=== PATIENT | female | born 1930 | race Caucasian/White ===

== ENCOUNTER 2018-09-30 00:02 | Emergency (ER) | payer MEDICARE, BC ==
--- NOTE | 2018-09-30 00:10 | ED ---
General Adult HPI - General Stated complaint: Dehydration Time Seen by Provider: 09/30/18 00:08 - History of Present Illness Initial comments: Cindy is a 88-year-old female with extensive past medical history most significant for adrenal insufficiency for which she is on steroids 3 times daily. Patient presented to an outside emergency department today for evaluation of generalized weakness. She is found to have mild hyponatremia, mild hyperkalemia, mild increase in her kidney function and normal TSH. There is concerned that she had acute adrenal insufficiency and she has recently been treated for urinary tract infection. She was given a stress dose of 10 mg of IV Decadron and decision was made to transfer her here. Patient reports that she's just been very weak, too weak to get out of bed. She reports she's been compliant with her home medications. She was recently surety for urinary tract infection but is no longer having symptoms and her urinalysis at outside facility revealed no UTI. Review of Systems ROS Statement: Those systems with pertinent positive or pertinent negative responses have been documented in the HPI. ROS Other: All systems not noted in ROS Statement are negative. General Exam - General Exam Comments Initial Comments: Physical Exam GENERAL: Chronically ill-appearing, edematous HENT: Normocephalic, Atraumatic. EYES: PERRL, EOMI PULMONARY: Unlabored respirations. No audible rales rhonchi or wheezing was noted. CARDIOVASCULAR: There is a regular rate and rhythm without any murmurs gallops or rubs. ABDOMEN: Soft and nontender with normal bowel sounds. SKIN: Skin is thin and pale : Deferred NEUROLOGIC: Patient is alert and oriented x3. Moving all extremities spontaneously MUSCULOSKELETAL: Generalized muscle atrophy 2+ pitting edema lower extremities PSYCHIATRIC: Flat affect Limitations: no limitations Course Vital Signs 09/30/18 09/30/18 00:03 02:29 Temperature 97.4 F L Pulse Rate 71 70 Respiratory 18 15 Rate Blood Pressure 183/86 197/94 O2 Sat by Pulse 100 97 Oximetry Medical Decision Making - Medical Decision Making Patient care was discussed with the [facility], I was made aware of the patient's history, physical exam, labs and vital signs The patient was seen and evaluated upon arrival Repeat labs are ordered Patient care was discussed with the admitting physician who will not accept the admission at this time due to not having endocrinology available. Attempts were made to contact Dr. Nicole endocrinology however her office does not have an answering service and we could not confirm that she would be available to round on the patient therefore admitting physician did not accept the patient. Decision was made to transfer the patient to [facility]. Patient care was discussed with the ER physician [facility] who did confirm they have endocrinology available to see the patient and accepted the admission. Patient' s family agreeable to plan for transfer. - Lab Data Result diagrams: 09/30/18 00:05 09/30/18 00:05 Lab Results 09/30/18 09/30/18 Range/Units 00:05 00:05 WBC 3.4 L (3.8-10.6) k/uL RBC 3.12 L (3.80-5.40) m/uL Hgb 10.1 L (11.4-16.0) gm/dL Hct 31.6 L (34.0-46.0) % MCV 101.2 H (80.0-100.0) fL MCH 32.4 (25.0-35.0) pg MCHC 32.0 (31.0-37.0) g/dL RDW 15.7 H (11.5-15.5) % Plt Count (150-450) k/uL Neutrophils % 78 % Lymphocytes % 17 % Monocytes % 4 % Eosinophils % 0 % Basophils % 0 % Neutrophils # 2.6 (1.3-7.7) k/uL Lymphocytes # 0.6 L (1.0-4.8) k/uL Monocytes # 0.1 (0-1.0) k/uL Eosinophils # 0.0 (0-0.7) k/uL Basophils # 0.0 (0-0.2) k/uL Macrocytosis Slight Sodium 130 L (137-145) mmol/L Potassium 5.6 H (3.5-5.1) mmol/L Chloride 100 (98-107) mmol/L Carbon Dioxide 22 (22-30) mmol/L Anion Gap 8 mmol/L BUN 39 H (7-17) mg/dL Creatinine 1.15 H (0.52-1.04) mg/dL Est GFR (CKD-EPI)AfAm 50 (>60 ml/min/1.73 sqM) Est GFR (CKD-EPI)NonAf 43 (>60 ml/min/1.73 sqM) Glucose 132 H (74-99) mg/dL Calcium 8.9 (8.4-10.2) mg/dL Total Bilirubin 0.4 (0.2-1.3) mg/dL AST 25 (14-36) U/L ALT 31 (9-52) U/L Alkaline Phosphatase 90 (38-126) U/L Total Protein 6.4 (6.3-8.2) g/dL Albumin 3.6 (3.5-5.0) g/dL TSH 0.504 (0.465-4.680) mIU/L Cortisol 1 ug/dL Disposition Clinical Impression: Adrenal insufficiency, Fatigue Disposition: OTHER INSTITUTION NOT DEFINED Condition: Stable Referrals: Jose Miller DO [Primary Care Provider] - 1-2 days - Out of Hospital Transfer - Req. Specs Out of Hospital Transfer - Requested Specifics: Other Emergency Center ([facility])
[2018-09-30 00:20] VITALS: TEMP 97.4
[2018-09-30 01:29] LABS: Basophils % (A) 0 %; Eosinophils % (A) 0 %; HCT 31.6 % (34.0-46.0); HGB 10.1 gm/dL (11.4-16.0); Lymphocytes # (A) 0.6 k/uL (1.0-4.8); Lymphocytes % (A) 17 %; MCH 32.4 pg (25.0-35.0); MCV 101.2 fL (80.0-100.0); Macrocytosis Slight; Mean Platelet Volume 8.4; Monocytes # (A) 0.1 k/uL (0-1.0); Monocytes % (A) 4 %; Neutrophils # (A) 2.6 k/uL (1.3-7.7); Neutrophils % (A) 78 %; RBC 3.12 m/uL (3.80-5.40); RDW 15.7 % (11.5-15.5); WBC 3.4 k/uL (3.8-10.6)
[2018-09-30 01:39] LABS: Albumin 3.6 g/dL (3.5-5.0); Calcium 8.9 mg/dL (8.4-10.2); Potassium 5.6 mmol/L (3.5-5.1); Total Bilirubin 0.4 mg/dL (0.2-1.3); Total Protein 6.4 g/dL (6.3-8.2)
[2018-09-30 02:32] VITALS: BP 197/94; PULSE 70; RESP 15
== END 2018-09-30 03:32 | disposition short-term general hospital (02) ==
LOC: EC 00:02
DX: E27.40 Unspecified adrenocortical insufficiency (principal); M62.50 Muscle wasting and atrophy, not elsewhere classified, unspecified site
CPT/HCPCS: 36415; 80053; 82533; 84443; 85025; 99285

== ENCOUNTER 2019-03-04 15:55 | Observation (INO) | payer MEDICARE, BC ==
--- NOTE | 2019-03-04 16:44 | ED ---
Arrhythmia/Palpitations HPI - General Chief Complaint: Arrhythmia/Palpitations Stated Complaint: weakness Time Seen by Provider: 03/04/19 15:55 Source: patient, EMS, RN notes reviewed, old records reviewed Mode of arrival: EMS Limitations: no limitations - History of Present Illness Initial Comments: This 88-year-old female who was transferred from [facility] after being found be weak and bradycardic. She apparently went to have a blood draw today and was given Amicar became very weak she was seen in the emergency department here and then later transferred here at the request of cardiology. No chest pain fevers chills nausea vomiting sweats or other symptoms per paramedics upon arrival patient's heart rate was in the 40s. No other complaints of any other issues at this time - Related Data Allergies Allergy/AdvReac Type Severity Reaction Status Date / Time No Known Allergies Allergy Verified 03/04/19 16:03 Review of Systems ROS Statement: Those systems with pertinent positive or pertinent negative responses have been documented in the HPI. ROS Other: All systems not noted in ROS Statement are negative. Past Medical History Past Medical History: Heart Failure, Hyperlipidemia, Hypertension, Pneumonia, Thyroid Disorder Additional Past Medical History / Comment(s): Adrenal insufficency, UTI (September 11 2018) History of Any Multi-Drug Resistant Organisms: None Reported Past Surgical History: Adenoidectomy, Appendectomy, Cholecystectomy, Hysterectomy, Tonsillectomy Past Psychological History: No Psychological Hx Reported Smoking Status: Never smoker Past Alcohol Use History: None Reported Past Drug Use History: None Reported General Exam - General Exam Comments Initial Comments: This is a well-developed well-nourished awake alert oriented 3 female Limitations: no limitations General appearance: alert, in no apparent distress Head exam: Present: atraumatic, normocephalic, normal inspection Eye exam: Present: normal appearance, PERRL, EOMI. Absent: scleral icterus, conjunctival injection, periorbital swelling ENT exam: Present: normal exam, mucous membranes moist Neck exam: Present: normal inspection. Absent: tenderness, meningismus, lymphadenopathy Respiratory exam: Present: normal lung sounds bilaterally. Absent: respiratory distress, wheezes, rales, rhonchi, stridor Cardiovascular Exam: Present: normal rhythm, bradycardia, normal heart sounds. Absent: systolic murmur, diastolic murmur, rubs, gallop, clicks GI/Abdominal exam: Present: soft, normal bowel sounds. Absent: distended, tenderness, guarding, rebound, rigid Extremities exam: Present: normal inspection, full ROM, normal capillary refill. Absent: tenderness, pedal edema, joint swelling, calf tenderness Back exam: Present: normal inspection Neurological exam: Present: alert, oriented X3, CN II-XII intact Psychiatric exam: Present: normal affect, normal mood Skin exam: Present: warm, dry, intact, normal color. Absent: rash Course Vital Signs 03/04/19 16:00 Temperature 97.8 F Pulse Rate 54 L Respiratory 16 Rate Blood Pressure 164/83 O2 Sat by Pulse 96 Oximetry - Reevaluation(s) Reevaluation #1: 03/04/19 16:43 The monitor: Indication rule out PVCs or PACs/ectopy. None was noted heart rate time of my admission was 48 bpm. Medical Decision Making - Medical Decision Making Review the material sent from her district [facility] and did discuss the case with Dr. Gonzalez the patient will be admitted with cardiology consultation. Disposition Clinical Impression: Bradycardia, Weakness Disposition: ADMITTED IP TO THIS HOSP Condition: Fair Referrals: Jose Miller DO [Primary Care Provider] - 1-2 days
[2019-03-04] MEDS ORDERED: SODIUM CHLORIDE 0.9% 1,000 ML IV SCH (16:45)
[2019-03-04] MEDS ORDERED: NALOXONE 0.4 MG/ML 1 ML VIAL IV PRN (16:45)
[2019-03-04] MEDS ORDERED: SODIUM CHLORIDE 0.9% 1,000 ML IV STA (17:14)
[2019-03-04] MEDS ORDERED: SODIUM CHLORIDE 0.9% 500 ML 500 ML IV STA (17:14)
--- NOTE | 2019-03-04 18:08 | P.HPIM ---
History of Present Illness 88-year-old pleasant female the was sent in here from [facility] for further sinus bradycardia in with first-degree AV block. Patient undergoes on to as low as 40. Patient did receive a blood draw today after that patient has been quite weak denied any lightheadedness or syncopal episode. And the patient and nausea vomiting. Patient denied any dysuria no signs or symptoms of sepsis. Patient went to chiropractor as well and she is not feeling well patient was seen in [facility] found to have heart rate going down to as low as 40s and below 40s and she is sleeping. Patient's EKG showed sinus bradycardia and sometimes first-degree AV block patient does have RSR pattern with LVH and the right bundle branch block. TSH is not available with this will be obtained chest x-ray within normal limits patient says she has history of congestive heart failure no echocardiac exam is available here echocardiogram will be obtained clinically patient is not in CHF patient's creatinine is 1.25 baseline around 1 patient was started on IV fluids, dehydration may be contributing to her symptoms patient denied any flulike symptoms chest x-ray did not show any pneumonic process. Patient was recently diagnosed with adrenal insufficiency for which patient is on for 2 And Hydrocortisone. TSH Will Be Ob tained As Well. Patient Will Be Admitted to Acute Care Assistant. Cardiology Will Be Consulted Review of Systems REVIEW OF SYSTEMS: CONSTITUTIONAL: As mentioned in HPI HEENT: No recent visual problems or hearing problems. Denied any sore throat. CARDIOVASCULAR: No chest pain, orthopnea, PND, no palpitations, no syncope. PULMONARY: No shortness of breath, no cough, no hemoptysis. GASTROINTESTINAL: No diarrhea, no nausea, no vomiting, no abdominal pain. NEUROLOGICAL: No headaches, no weakness, no numbness. HEMATOLOGICAL: Denies any bleeding or petechiae. GENITOURINARY: Denies any burning micturition, frequency, or urgency. MUSCULOSKELETAL/RHEUMATOLOGICAL: Denies any joint pain, swelling, or any muscle pain. ENDOCRINE: Denies any polyuria or polydipsia. The rest of the 14-point review of systems is negative. Past Medical History Past Medical History: Heart Failure, Hyperlipidemia, Hypertension, Pneumonia, Th yroid Disorder Additional Past Medical History / Comment(s): Adrenal insufficency, UTI (September 11 2018) History of Any Multi-Drug Resistant Organisms: None Reported Past Surgical History: Adenoidectomy, Appendectomy, Cholecystectomy, Hysterectomy, Tonsillectomy Past Psychological History: No Psychological Hx Reported Smoking Status: Never smoker Past Alcohol Use History: None Reported Past Drug Use History: None Reported Medications and Allergies Home Medications Medication Instructions Recorded Confirmed Type Aspirin [[place] Aspirin EC] 81 mg PO DAILY 03/04/19 03/04/19 History Famotidine 20 mg PO HS 03/04/19 03/04/19 History Ferrous Sulfate [Feosol] 325 mg PO DAILY 03/04/19 03/04/19 History Fludrocortisone [Florinef] 0.1 mg PO DAILY 03/04/19 03/04/19 History Furosemide [Lasix] 20 mg PO DAILY 03/04/19 03/04/19 History Hydrocortisone [Cortef] 5 mg PO HS 03/04/19 03/04/19 History Hydrocortisone [Cortef] 10 mg PO DAILY 03/04/19 03/04/19 History Isosorbide Mononitrate ER [Imdur] 30 mg PO DAILY 03/04/19 03/04/19 History L.acidoph,Paracasei, B.lactis 1 cap PO DAILY 03/04/19 03/04/19 History [Probiotic] Levothyroxine Sodium 88 mcg PO MOTUWETHFRSA 03/04/19 03/04/19 History Levothyroxine Sodium 176 mcg PO DUMAS 03/04/19 03/04/19 History Potassium Chloride ER [K-Dur 10] 10 meq PO DAILY 03/04/19 03/04/19 History Tamsulosin HCl [Flomax] 0.4 mg PO DAILY 03/04/19 03/04/19 History Valsartan 40 mg PO DAILY 03/04/19 03/04/19 History Allergies Allergy/AdvReac Type Severity Reaction Status Date / Time ciprofloxacin [From Cipro] Allergy Unknown Verified 03/04/19 16:45 hydrochlorothiazide Allergy Unknown Verified 03/04/19 16:45 nitrofurantoin Allergy Unknown Verified 03/04/19 16:45 sulfamethoxazole Allergy Unknown Verified 03/04/19 16:45 [From Bactrim] trimethoprim [From Bactrim] Allergy Unknown Verified 03/04/19 16:45 Physical Exam Vitals: Vital Signs Temp Pulse Resp BP Pulse Ox 03/04/19 17:59 15 03/04/19 17:40 97.8 F 49 L 5 L 148/82 97 03/04/19 16:30 45 L 15 164/83 99 03/04/19 16:00 97.8 F 54 L 16 164/83 96 Intake and Output 03/04/19 03/04/19 03/04/19 06:59 14:59 22:59 Other: Weight 81.647 kg PHYSICAL EXAMINATION: GENERAL: The patient is alert and oriented x3, not in any acute distress. Well developed, well nourished. She definitely appears to be tired HEENT: Pupils are round and equally reacting to light. EOMI. No scleral icterus. No conjunctival pallor. Normocephalic, atraumatic. No pharyngeal erythema. No thyromegaly. CARDIOVASCULAR: S1 and S2 present. No murmurs, rubs, or gallops. PULMONARY: Chest is clear to auscultation, no wheezing or crackles. ABDOMEN: Soft, nontender, nondistended, normoactive bowel sounds. No palpable organomegaly. MUSCULOSKELETAL: No joint swelling or deformity. EXTREMITIES: No cyanosis, clubbing, or pedal edema. NEUROLOGICAL: Gross neurological examination did not reveal any focal deficits. SKIN: No rashes. Assessment and Plan Plan: -Generalized weakness and tiredness: Patient does have sinus bradycardia not sure if that is contributing to her symptoms in years patient will be monitored will rule out other causes patient does not have any signs or symptoms of sepsis TSH will be obtained patient will be hydrated cardiology will the evaluated the patient patient will be monitored overnight on telemetry here. -Hyperadrenalism patient will be resumed on for the cortisone and hydrocortisone -Patient states history of congestive heart failure although did not have any ejection fraction available at this time patient is actually hypovolemic because of which I'll give her gentle hydration. -Acute renal failure Krill azotemia probably due to intravascular depletion hold off on RADHA inhibitor and diuretic therapy IV fluids as mentioned above -Hypertension -Hypothyroidism -Recent UTI UA presently is within normal limits Due to prophylaxis early ambulation
[2019-03-04] MEDS: SODIUM CHLORIDE 0.9% 1,000 ML IV SCH (20:14)
[2019-03-04] MEDS ORDERED: ACETAMINOPHEN TAB 325 MG TAB PO STA (20:16)
[2019-03-04] MEDS ORDERED: HYDROCORTISONE 10 MG TAB PO SCH (21:00)
[2019-03-05] MEDS ORDERED: LEVOTHYROXINE 88 MCG TAB PO SCH (06:30)
[2019-03-05 06:44] LABS: Anisocytosis Slight; HCT 31.4 % (34.0-46.0); HGB 10.3 gm/dL (11.4-16.0); MCH 31.2 pg (25.0-35.0); MCHC 32.9 g/dL (31.0-37.0); MCV 94.9 fL (80.0-100.0); Mean Platelet Volume 8.6; Platelet Count 252 k/uL (150-450); RBC 3.31 m/uL (3.80-5.40); RDW 16.5 % (11.5-15.5); WBC 3.3 k/uL (3.8-10.6)
[2019-03-05 06:54] LABS: Calcium 9.2 mg/dL (8.4-10.2); Potassium 4.5 mmol/L (3.5-5.1)
[2019-03-05 08:21] VITALS: RESP 18
[2019-03-05] MEDS ORDERED: TAMSULOSIN 0.4 MG CAP.ER.24H PO SCH (09:00)
[2019-03-05] MEDS ORDERED: ASPIRIN 81 MG PO SCH (09:00)
[2019-03-05] MEDS ORDERED: HYDROCORTISONE 10 MG TAB PO SCH (09:00)
[2019-03-05] MEDS ORDERED: ISOSORBIDE MONONITRATE ER 30 MG TAB.ER.24H PO SCH (09:00)
[2019-03-05] MEDS ORDERED: FLUDROCORTISONE 0.1 MG TAB PO SCH (09:00)
[2019-03-05] MEDS: SODIUM CHLORIDE 0.9% 1,000 ML IV SCH (09:29)
[2019-03-05 10:57] VITALS: TEMP 97.6
--- NOTE | 2019-03-05 11:04 | ECHOF ---
Referral Reason:bradycardia, COPD MEASUREMENTS -------- HEIGHT: 165.1 cm WEIGHT: 81.6 kg BP: RVIDd: 2.2 cm (< 3.3) IVSd: 1.4 cm (0.6 - 1.1) LVIDd: 4.5 cm (3.9 - 5.3) LVPWd: 1.4 cm (0.6 - 1.1) IVSs: 1.5 cm LVIDs: 4.1 cm LVPWs: 1.1 cm LA Diam: 4.4 cm (2.7 - 3.8) LAESV Index (A-L): 33.97 ml/m MV EXCURSION: 18.048 mm (> 18.000) MV EF SLOPE: 120 mm/s (70 - 150) EPSS: 0.7 cm MV E Heriberto: 0.38 m/s MV DecT: 195 ms MV A Heriberto: 0.80 m/s MV E/A Ratio: 0.47 AV maxP.09 mmHg AV meanP.58 mmHg AR PHT: 426 ms RAP: 5.00 mmHg RVSP: 31.76 mmHg FINDINGS -------- Undetermined rhythm. This was a technically adequate study. The left ventricular size is normal. There is moderate concentric left ventricular hypertrophy. O verall left ventricular systolic function is low-normal with, an EF between 50 - 55 %. The right ventricle is normal in size. The left atrium is moderately dilated. LA is moderately dilated 34-39 ml/m2 The right atrial size is normal. Interatrial and interventricular septum intact. There is mild aortic regurgitation. Peak/mean gradient across the Aortic Valve is 13.09mmHg / 6.58m mHg. The mitral valve leaflets are mildly thickened. Mild mitral annular calcification present. Mild m itral regurgitation is present. Mild tricuspid regurgitation present. There is no evidence of pulmonary hypertension. The right v entricular systolic pressure, as measured by Doppler, is 31.76mmHg. Trace/mild (physiologic) pulmonic regurgitation. The aortic root size is normal. IVC Not well visulized. There is no pericardial effusion. CONCLUSIONS -------- 1. The left ventricular size is normal. 2. There is moderate concentric left ventricular hypertrophy. 3. Overall left ventricular systolic function is low-normal with, an EF between 50 - 55 %. 4. The right ventricle is normal in size. 5. The left atrium is moderately dilated. 6. LA is moderately dilated 34-39 ml/m2 7. The right atrial size is normal. 8. Interatrial and interventricular septum intact. 9. There is mild aortic regurgitation. 10. Peak/mean gradient across the Aortic Valve is 13.09mmHg / 6.58mmHg. 11. The mitral valve leaflets are mildly thickened. 12. Mild mitral annular calcification present. 13. Mild mitral regurgitation is present. 14. Mild tricuspid regurgitation present. 15. There is no evidence of pulmonary hypertension. 16. The right ventricular systolic pressure, as measured by Doppler, is 31.76mmHg. 17. Trace/mild (physiologic) pulmonic regurgitation. 18. The aortic root size is normal. 19. IVC Not well visulized. 20. There is no pericardial effusion. FLOOR SURFACER: Jada Truong RDCS
--- NOTE | 2019-03-05 11:08 | P.CRDCN ---
History of Present Illness History of present illness: This is a pleasant 88-year-old female past medical history significant for hypertension, hypothyroidism and right bundle branch block on EKG. She follows with Dr. Faria in the office. We have been asked to see her in consultation for bradycardia. She is somewhat of a poor historian. Information is obtained from the chart and nursing staff. She was transferred from [facility] after having a pre-syncopal episode while getting blood draw. She apparently was feeling light headed and increasingly weak. Upon arrival EKG obtained revealed right bundle branch block with first degree AV block and left axis deviation with a heart rate of 52. No changes from previous EKG in the office 07/2017. Overnight there was concern about her temperature being low at 92.6 rectally on repeated checks. Attempts were made to transfer the patient to a higher level of care. She is currently seen and examined resting comfortably laying flat in bed in no acute distress with bear hugger in place. She denies all complaints of chest pain, shortness of breath, dizziness or palpitations. She states when she stands up to move around she feels unsteady on her feet and light headed at times. She cannot specifically recall what happened yesterday leading up to her hospitalization. I have attempted to reach her daughter and have been unsuccessful. Laboratory data reviewed, WBC 3.3, hemoglobin 10.3, platelets 252, sodium 140, potassium 4.5, creatinine 1.0 and TSH 0.621. Telemetry tracings reviewed reveals episodes of bradycardia with first degree AV block heart rate as low as 45 with small pause noted of about 1.6 seconds. Home medications include Florinef 0.1 mg daily, Imdur 30 mg daily, Lasix 20 mg daily, aspirin 81 mg daily and valsartan 40 mg daily. Most recent echocardiogram obtained in the office in 2016 revealed preserved left ventricle systolic function with ejection fraction 55%, mild concentric left ventricular hypertrophy, stage I diastolic dysfunction with impaired relaxation, calcified aortic valve with mild aortic regurgitation. At the time of my exam: CONSTITUTIONAL: Denies fever. Denies chills. EYES: Denies blurred vision. Denies vision changes. Denies eye pain. EARS, NOSE, MOUTH & THROAT: Denies headache. Denies sore throat. Denies ear pain. CARDIOVASCULAR: Denies chest pain. Denies shortness of breath. Denies orthopnea. Denies PND. Denies palpitations. RESPIRATORY: Denies cough. GASTROINTESTINAL: Denies abdominal pain. Denies diarrhea. Denies constipation. Denies nausea. Denies vomiting. MUSCULOSKELETAL: Denies myalgias. INTEGUMENTARY: Denies pruitis. Denies rash. NEUROLOGIC: Denies numbness. Denies tingling. Denies weakness. PSYCHIATRIC: Denies anxiety. Denies depression. ENDOCRINE: Denies fatigue. Denies weight change. Denies polydipsia. Denies polyurina. GENITOURINARY: Denies burning, hematuria or urgency with micturation. HEMATOLOGIC: Denies history of anemia. Denies bleeding. Blood pressure 155/69 heart rate 51 afebrile maintaining oxygen saturation on room air GENERAL: This is a 88-year-old female in no apparent distress at the time of my examination. HEENT: Head is atraumatic, normocephalic. Pupils are equal, round. Sclerae anicteric. Conjunctivae are clear. Mucous membranes of the mouth are moist. Neck is supple. There is no jugular venous distention. No carotid bruit is heard. LUNGS: Clear to auscultation no wheezes, rales or rhonchi. No chest wall tenderness is noted on palpation or with deep breathing. HEART: Regular rate and rhythm with faint systolic ejection murmur at the left sternal border, no rubs or gallops. S1 and S2 heard. ABDOMEN: Soft, nontender. Bowel sounds are heard. No organomegaly noted. EXTREMITIES: Trace left lower extremity peripheral edema, no edema on the right and no calf tenderness noted. VASCULAR: Radial and dorsalis pedis pulses palpated, no evidence of clubbing. NEUROLOGIC: Patient is awake, alert and oriented. 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 Hemodynamically stable with no symptoms attributable to bradycardia. Electrolytes are normal. Ongoing medical management of hypothermia. Outpatient holter monitor upon discharge. Follow up with Dr. Faria upon discharge. Thank you kindly for this consultation. Nurse Practitioner note has been reviewed, I agree with a documented findings and plan of care. Patient was seen and examined. Past Medical History Past Medical History: Heart Failure, Hyperlipidemia, Hypertension, Pneumonia, Thyroid Disorder Additional Past Medical History / Comment(s): Adrenal insufficency, UTI (September 11 2018) History of Any Multi-Drug Resistant Organisms: None Reported Past Surgical History: Adenoidectomy, Appendectomy, Cholecystectomy, Hysterectomy, Tonsillectomy Past Anesthesia/Blood Transfusion Reactions: No Reported Reaction Past Psychological History: No Psychological Hx Reported Smoking Status: Never smoker Past Alcohol Use History: None Reported Past Drug Use History: None Reported Medications and Allergies Home Medications Medication Instructions Recorded Confirmed Type Aspirin [[place] Aspirin EC] 81 mg PO DAILY 03/04/19 03/04/19 History Famotidine 20 mg PO HS 03/04/19 03/04/19 History Ferrous Sulfate [Feosol] 325 mg PO DAILY 03/04/19 03/04/19 History Fludrocortisone [Florinef] 0.1 mg PO DAILY 03/04/19 03/04/19 History Furosemide [Lasix] 20 mg PO DAILY 03/04/19 03/04/19 History Hydrocortisone [Cortef] 5 mg PO HS 03/04/19 03/04/19 History Hydrocortisone [Cortef] 10 mg PO DAILY 03/04/19 03/04/19 History Isosorbide Mononitrate ER [Imdur] 30 mg PO DAILY 03/04/19 03/04/19 History L.acidoph,Paracasei, B.lactis 1 cap PO DAILY 03/04/19 03/04/19 History [Probiotic] Levothyroxine Sodium 88 mcg PO MOTUWETHFRSA 03/04/19 03/04/19 History Levothyroxine Sodium 176 mcg PO BROCK 03/04/19 03/04/19 History Potassium Chloride ER [K-Dur 10] 10 meq PO DAILY 03/04/19 03/04/19 History Tamsulosin HCl [Flomax] 0.4 mg PO DAILY 03/04/19 03/04/19 History Valsartan 40 mg PO DAILY 03/04/19 03/04/19 History Allergies Allergy/AdvReac Type Severity Reaction Status Date / Time ciprofloxacin [From Cipro] Allergy Unknown Verified 03/04/19 16:45 hydrochlorothiazide Allergy Unknown Verified 03/04/19 16:45 nitrofurantoin Allergy Unknown Verified 03/04/19 16:45 sulfamethoxazole Allergy Unknown Verified 03/04/19 16:45 [From Bactrim] trimethoprim [From Bactrim] Allergy Unknown Verified 03/04/19 16:45 Physical Exam Vitals: Vital Signs Temp Pulse Pulse Resp BP BP Pulse Ox 03/05/19 06:22 97.6 F 03/05/19 05:19 93.8 F L 03/05/19 04:20 97.7 F 03/05/19 04:00 97.7 F 03/05/19 03:32 17 03/05/19 03:00 96.6 F L 82 18 138/52 91 L 03/05/19 02:00 93.8 F L 03/05/19 01:00 93.8 F L 03/05/19 00:00 93.8 F L 60 18 155/69 95 03/04/19 22:40 92.3 F L 03/04/19 20:00 65 17 03/04/19 19:00 92.6 F L 03/04/19 18:58 53 L 18 156/74 100 03/04/19 17:59 15 03/04/19 17:40 97.8 F 49 L 5 L 148/82 97 03/04/19 16:30 45 L 15 164/83 99 03/04/19 16:00 97.8 F 54 L 16 164/83 96 Intake and Output 03/04/19 03/05/19 03/05/19 22:59 06:59 14:59 Output Total 300 1 Balance -300 -1 Output: Urine 300 Stool 1 Other: Voiding Method Toilet Toilet # Voids 1 1 Weight 81.647 kg Results 03/05/19 06:15 03/05/19 06:15 CBC 03/05/19 Range/Units 06:15 WBC 3.3 L (3.8-10.6) k/uL RBC 3.31 L (3.80-5.40) m/uL Hgb 10.3 L (11.4-16.0) gm/dL Hct 31.4 L (34.0-46.0) % Plt Count 252 (150-450) k/uL Comprehensive Metabolic Panel 03/05/19 Range/Units 06:15 Sodium 140 (137-145) mmol/L Potassium 4.5 (3.5-5.1) mmol/L Chloride 105 (98-107) mmol/L Carbon Dioxide 29 (22-30) mmol/L BUN 21 H (7-17) mg/dL Creatinine 1.00 (0.52-1.04) mg/dL Glucose 75 (74-99) mg/dL Calcium 9.2 (8.4-10.2) mg/dL Current Medications Generic Name Dose Route Start Last Admin Trade Name Freq PRN Reason Stop Dose Admin Aspirin 81 mg 03/05/19 09:00 Aspirin PO DAILY FROY Fludrocortisone Acetate 0.1 mg 03/05/19 09:00 Florinef PO DAILY FROY Hydrocortisone 10 mg 03/05/19 09:00 Cortef PO DAILY FROY Hydrocortisone 5 mg 03/04/19 21:00 03/04/19 20:14 Cortef PO 5 mg HS FROY Administration Sodium Chloride 1,000 mls @ 20 mls/hr 03/04/19 16:45 03/04/19 20:13 Saline 0.9% IV Not Given .Q24H FROY Sodium Chloride 1,000 mls @ 75 mls/hr 03/04/19 18:15 03/04/19 20:14 Saline 0.9% IV 75 mls/hr .[id number] FROY Administration Isosorbide Mononitrate 30 mg 03/05/19 09:00 Imdur PO DAILY FROY Levothyroxine Sodium 88 mcg 03/05/19 06:30 03/05/19 04:43 Synthroid PO 88 mcg [id number]@0630 FROY Administration Levothyroxine Sodium 176 mcg 03/08/19 06:30 Synthroid PO Brock@0630 FROY Naloxone HCl 0.2 mg 03/04/19 16:45 Narcan IV Q2M PRN Opioid Reversal Tamsulosin HCl 0.4 mg 03/05/19 09:00 Flomax PO DAILY FROY Intake and Output 03/04/19 03/05/19 03/05/19 22:59 06:59 14:59 Output Total 300 1 Balance -300 -1 Output: Urine 300 Stool 1 Other: Voiding Method Toilet Toilet # Voids 1 1 Weight 81.647 kg 03/05/19 06:15 03/05/19 06:15
--- NOTE | 2019-03-05 14:05 | P.DS ---
Providers Date of admission: 03/04/19 17:02 Attending physician: Gisela Gonzalez Consults: 03/04/19 16:46 Consult Physician Routine Consulting Provider: Karthik Faria Consult Reason/Comments: Bradycardia Do you want consulting provider notified?: Yes Primary care physician: Jose Miller [facility] Course: 88-year-old pleasant female the was sent in here from [facility] for further sinus bradycardia in with first-degree AV block. Patient undergoes on to as low as 40. Patient did receive a blood draw today after that patient has been quite weak denied any lightheadedness or syncopal episode. And the patient and nausea vomiting. Patient denied any dysuria no signs or symptoms of sepsis. Patient went to chiropractor as well and she is not feeling well patient was seen in [facility] found to have heart rate going down to as low as 40s and below 40s and she is sleeping. Patient's EKG showed sinus bradycardia and sometimes first-degree AV block patient does have RSR pattern with LVH and the right bundle branch block. TSH is not available with this will be obtained chest x-ray within normal limits patient says she has history of congestive heart failure no echocardiac exam is available here echocardiogram will be obtained clinically patient is not in CHF patient's creatinine is 1.25 baseline around 1 patient was started on IV fluids, dehydration may be c ontributing to her symptoms patient denied any flulike symptoms chest x-ray did not show any pneumonic process. Patient was recently diagnosed with adrenal insufficiency for which patient is on for 2 And Hydrocortisone. TSH Will Be Obtained As Well. Patient Will Be Admitted to Consultants Intern. Cardiology Will Be Consulted 03/05/2019 Patient was evaluated by cardiology and recommending event monitor. Patient looks better today. 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 TSH is within normal notes although patient is hypothermic had a bun of such episode and patient is known to have such episodes there is no evidence of sepsis at this time patient will be discharged today. PHYSICAL EXAMINATION: GENERAL: The patient is alert and oriented x3, not in any acute distress. Well developed, well nourished. HEENT: Pupils are round and equally reacting to light. EOMI. No scleral icterus. No conjunctival pallor. Normocephalic, atraumatic. No pharyngeal erythema. No thyromegaly. CARDIOVASCULAR: S1 and S2 present. No murmurs, rubs, or gallops. PULMONARY: Chest is clear to auscultation, no wheezing or crackles. ABDOMEN: Soft, nontender, nondistended, normoactive bowel sounds. No palpable organomegaly. MUSCULOSKELETAL: No joint swelling or deformity. EXTREMITIES: No cyanosis, clubbing, or pedal edema. NEUROLOGICAL: Gross neurological examination did not reveal any focal deficits. SKIN: No rashes. Assessment and Plan Plan: -Generalized weakness and tiredness: Patient does have sinus bradycardia most probably not contributing to her symptoms TSH within normal notes and patient will be discharged with event monitor for a month. Echocardiogram didn't show any significant abnormality -Hyperadrenalism patient will be resumed on for the cortisone and hydrocortisone -Acute renal failure prerenal azotemia improved with IV fluids as her diastolic dysfunction status is unknown, her oral Lasix will be resumed. -Hypertension -Hypothyroidism -Recent UTI UA presently is within normal limits Patient Condition at Discharge: Fair Plan - Discharge Summary Discharge Rx Participant: Yes New Discharge Prescriptions: Continue L.acidoph,Paracasei, B.lactis [Probiotic] 1 cap PO DAILY Ferrous Sulfate [Iron (65 MG Elemental)] 325 mg PO DAILY Aspirin [[place] Aspirin EC] 81 mg PO DAILY Potassium Chloride ER [K-Dur 10] 10 meq PO DAILY Furosemide [Lasix] 20 mg PO DAILY Famotidine 20 mg PO HS Hydrocortisone [Cortef] 10 mg PO DAILY Hydrocortisone [Cortef] 5 mg PO HS Levothyroxine Sodium 176 mcg PO DUMAS Isosorbide Mononitrate ER [Imdur] 30 mg PO DAILY Fludrocortisone [Florinef] 0.1 mg PO DAILY Tamsulosin HCl [Flomax] 0.4 mg PO DAILY Levothyroxine Sodium 88 mcg PO MOTUWETHFRSA Valsartan 40 mg PO DAILY Discharge Medication List Aspirin [[place] Aspirin EC] 81 mg PO DAILY 03/04/19 [History] Famotidine 20 mg PO HS 03/04/19 [History] Ferrous Sulfate [Iron (65 MG Elemental)] 325 mg PO DAILY 03/04/19 [History] Fludrocortisone [Florinef] 0.1 mg PO DAILY 03/04/19 [History] Furosemide [Lasix] 20 mg PO DAILY 03/04/19 [History] Hydrocortisone [Cortef] 5 mg PO HS 03/04/19 [History] Hydrocortisone [Cortef] 10 mg PO DAILY 03/04/19 [History] Isosorbide Mononitrate ER [Imdur] 30 mg PO DAILY 03/04/19 [History] L.acidoph,Paracasei, B.lactis [Probiotic] 1 cap PO DAILY 03/04/19 [History] Levothyroxine Sodium 88 mcg PO MOTUWETHFRSA 03/04/19 [History] Levothyroxine Sodium 176 mcg PO DUMAS 03/04/19 [History] Potassium Chloride ER [K-Dur 10] 10 meq PO DAILY 03/04/19 [History] Tamsulosin HCl [Flomax] 0.4 mg PO DAILY 03/04/19 [History] Valsartan 40 mg PO DAILY 03/04/19 [History] Follow up Appointment(s)/Referral(s): Jose Miller DO [Primary Care Provider] - 3 Days Patient Instructions/Handouts: Bradycardia (DC), Weakness (DC) Activity/Diet/Wound Care/Special Instructions: [facility] will contact you to set up the admission for Home Care. They can be contacted at [phone] Discharge Disposition: HOME WITH HOME HEALTH SERVICES
[2019-03-05 14:09] VITALS: BP 113/66; PULSE 69
[2019-03-08] MEDS ORDERED: LEVOTHYROXINE 88 MCG TAB PO SCH (06:30)
== END 2019-03-05 16:00 | disposition home health service (06) ==
LOC: EC 15:55 → 1SOBS 17:02
PROVIDERS: ADMIT Internal Medicine; ATTEND Internal Medicine
DX: R53.1 Weakness (principal); R53.83 Other fatigue; R00.1 Bradycardia, unspecified; E27.5 Adrenomedullary hyperfunction; I11.0 Hypertensive heart disease with heart failure; N17.9 Acute kidney failure, unspecified; I50.9 Heart failure, unspecified; T68.XXXA Hypothermia, initial encounter; E78.5 Hyperlipidemia, unspecified; E86.1 Hypovolemia; E03.9 Hypothyroidism, unspecified; Z90.49 Acquired absence of other specified parts of digestive tract; I45.10 Unspecified right bundle-branch block; I44.0 Atrioventricular block, first degree; R11.2 Nausea with vomiting, unspecified; Z87.440 Personal history of urinary (tract) infections; Z87.01 Personal history of pneumonia (recurrent); Z79.82 Long term (current) use of aspirin; Z79.52 Long term (current) use of systemic steroids; Z79.890 Hormone replacement therapy; Z79.899 Other long term (current) drug therapy; Z88.1 Allergy status to other antibiotic agents; Z88.2 Allergy status to sulfonamides; Z88.8 Allergy status to other drugs, medicaments and biological substances
CPT/HCPCS: 96361 ×2; 96360; 99285; 93005; 93306; 93270; 80048; 84443; 85027; G0378 ×2

== ENCOUNTER 2019-04-14 13:39 | Emergency (ER) | payer MEDICARE, BC ==
[2019-04-14 14:03] LABS: Glucose,Whole Blood 83 mg/dL (75-99)
--- NOTE | 2019-04-14 14:05 | CT ---
EXAMINATION TYPE: CT brain wo con for TPA DATE OF EXAM: 04/14/2019 COMPARISON: 03/04/[address] scans submitted from [facility] HISTORY: Neuro deficit CT DLP: 1158.4 mGycm Automated exposure control for dose reduction was used. FINDINGS: Generalized degenerative changes are noted. Calcifications in the basal ganglia are stable. There is ectasia of the vertebral arteries. Faint low-attenuation within the white matter bilaterally is nonsp ecific but stable and most typical remote microvascular ischemia. No acute hemorrhage. No midline shift. No mass effect. Small area of focal low-attenuation involving the anterior limb of the internal capsule on the right appears retrospectively stable from the prior exam. Low-lying cerebellar tonsils. IMPRESSION: NO ACUTE HEMORRHAGE. DEGENERATIVE AND NONSPECIFIC WHITE MATTER CHANGES.
--- NOTE | 2019-04-14 14:10 | ED ---
General Adult HPI - General Stated complaint: POSS CVA Time Seen by Provider: 04/14/19 13:40 Source: patient, EMS, RN notes reviewed Mode of arrival: EMS Limitations: altered mental status - History of Present Illness Initial comments: Patient is a pleasant 89-year-old female presenting to the emergency department by EMS. Patient was getting her hair done. Patient did have an episode of change in mental status. Daughter was concerned for possible urinary tract infection recently and did have urine test ordered yesterday. Results are not available. Daughter is now present at this time. Patient has no specific complaints and states she feels fine. Patient provides very limited history. EMS is concerned that left-sided facial droop was noted in route. - Related Data Home Medications Medication Instructions Recorded Confirmed Aspirin [Edgar Aspirin EC] 81 mg PO DAILY 03/04/19 04/14/19 Famotidine 20 mg PO HS 03/04/19 04/14/19 Ferrous Sulfate [Iron (65 MG 325 mg PO DAILY 03/04/19 04/14/19 Elemental)] Fludrocortisone [Florinef] 0.1 mg PO DAILY 03/04/19 04/14/19 Furosemide [Lasix] 20 mg PO DAILY 03/04/19 04/14/19 Hydrocortisone [Cortef] 5 mg PO HS 03/04/19 04/14/19 Hydrocortisone [Cortef] 10 mg PO DAILY 03/04/19 04/14/19 Isosorbide Mononitrate ER [Imdur] 30 mg PO DAILY 03/04/19 04/14/19 L.acidoph,Paracasei, B.lactis 1 cap PO DAILY 03/04/19 04/14/19 [Probiotic] Levothyroxine Sodium 88 mcg PO MOTUWETHFRSA 03/04/19 04/14/19 Levothyroxine Sodium 176 mcg PO DUMAS 03/04/19 04/14/19 Potassium Chloride ER [K-Dur 10] 10 meq PO DAILY 03/04/19 04/14/19 Tamsulosin HCl [Flomax] 0.4 mg PO DAILY 03/04/19 04/14/19 Valsartan 40 mg PO DAILY 03/04/19 04/14/19 Pilocarpine 1% Ophth Soln [Isopto 1 drops BOTH EYES HS 04/14/19 04/14/19 Carpine 1%] Allergies Allergy/AdvReac Type Severity Reaction Status Date / Time ciprofloxacin [From Cipro] Allergy Unknown Verified 04/14/19 14:05 hydrochlorothiazide Allergy Unknown Verified 04/14/19 14:05 nitrofurantoin Allergy Unknown Verified 04/14/19 14:05 sulfamethoxazole Allergy Unknown Verified 04/14/19 14:05 [From Bactrim] trimethoprim [From Bactrim] Allergy Unknown Verified 04/14/19 14:05 Review of Systems ROS Statement: Those systems with pertinent positive or pertinent negative responses have been documented in the HPI. ROS Other: All systems not noted in ROS Statement are negative. Constitutional: Denies: fever Eyes: Denies: eye pain ENT: Denies: ear pain Respiratory: Denies: cough Cardiovascular: Denies: chest pain Endocrine: Denies: fatigue Gastrointestinal: Denies: abdominal pain Genitourinary: Denies: dysuria Musculoskeletal: Denies: back pain Skin: Denies: rash Neurological: Reports: as per HPI, weakness, confusion Past Medical History Past Medical History: Heart Failure, Hyperlipidemia, Hypertension, Pneumonia, Thyroid Disorder Additional Past Medical History / Comment(s): Adrenal insufficency, UTI (September 11 2018) History of Any Multi-Drug Resistant Organisms: None Reported Past Surgical History: Adenoidectomy, Appendectomy, Cholecystectomy, Hysterectomy, Tonsillectomy Past Anesthesia/Blood Transfusion Reactions: No Reported Reaction Past Psychological History: No Psychological Hx Reported Smoking Status: Never smoker Past Alcohol Use History: None Reported Past Drug Use History: None Reported General Exam General appearance: alert, in no apparent distress, other (Patient resting comfortably in bed. Patient will follow commands. Extremity hard of hearing.) Head exam: Present: atraumatic Eye exam: Present: normal appearance, PERRL, EOMI ENT exam: Present: normal oropharynx Neck exam: Present: normal inspection. Absent: tenderness, meningismus Respiratory exam: Present: normal lung sounds bilaterally Cardiovascular Exam: Present: regular rate, normal rhythm GI/Abdominal exam: Present: soft. Absent: tenderness Extremities exam: Present: normal inspection Neurological exam: Present: alert, altered, CN II-XII intact (Except for left- sided facial droop. Forehead involvement is not appreciated.) Expanded Neurological exam: Present: other (Patient will follow commands however is delayed) Patient oriented to: Present: person. Absent: place, time Speech: Present: fluid speech Cranial nerves: EOM's Intact: Normal, Facial Sensation: Normal Sensory exam: Upper Extremity Light Touch: Normal, Lower Extremity Light Touch: Normal Motor strength exam: RUE: 5, LUE: 5, RLE: 5, LLE: 5 Eye Response: (4) open spontaneously Motor Response: (6) obeys commands Verbal Response: (4) confused conversation Psychiatric exam: Present: flat affect Skin exam: Present: normal color Course Vital Signs 04/14/19 04/14/19 04/14/19 13:45 14:00 14:15 Pulse Rate 65 68 61 Respiratory 18 18 18 Rate Blood Pressure 194/105 164/85 165/86 O2 Sat by Pulse 94 L 94 L 97 Oximetry - Reevaluation(s) Reevaluation #1: 04/14/19 13:52 Case was discussed with neural interventional list, Dr. self who agrees not a TPA candidate. Also agrees not CTA candidate. EKG Findings - EKG Comments: EKG Findings:: Sinus rhythm at 60. For screening AV block OK 270. QRS 150. QTC 46. QTc 46. Left axis. Right bundle branch block. LVH. No acute ST change. Medical Decision Making - Medical Decision Making Patient reevaluated and resting comfortably in bed. Patient has improved. Facial weakness is near resolved. Confusion has resolved. Family feels patient is doing much better. Secondary to no neurology patient immediately transferred. Case was discussed in detail with Dr. diaz at [facility], who will accept transfer. - Lab Data Result diagrams: 04/14/19 14:11 04/14/19 14:11 Lab Results 04/14/19 04/14/19 04/14/19 Range/Units 14:01 14:11 14:11 WBC 5.0 (3.8-10.6) k/uL RBC 3.39 L (3.80-5.40) m/uL Hgb 10.3 L (11.4-16.0) gm/dL Hct 32.2 L (34.0-46.0) % MCV 95.2 (80.0-100.0) fL MCH 30.6 (25.0-35.0) pg MCHC 32.1 (31.0-37.0) g/dL RDW 16.9 H (11.5-15.5) % Plt Count 260 (150-450) k/uL Neutrophils % 70 % Lymphocytes % 20 % Monocytes % 7 % Eosinophils % 1 % Basophils % 0 % Neutrophils # 3.5 (1.3-7.7) k/uL Lymphocytes # 1.0 (1.0-4.8) k/uL Monocytes # 0.3 (0-1.0) k/uL Eosinophils # 0.0 (0-0.7) k/uL Basophils # 0.0 (0-0.2) k/uL Anisocytosis Slight PT (9.0-12.0) sec INR (<1.2) APTT (22.0-30.0) sec Sodium 139 (137-145) mmol/L Potassium 4.8 (3.5-5.1) mmol/L Chloride 101 (98-107) mmol/L Carbon Dioxide 29 (22-30) mmol/L Anion Gap 9 mmol/L BUN 28 H (7-17) mg/dL Creatinine 1.18 H (0.52-1.04) mg/dL Est GFR (CKD-EPI)AfAm 48 (>60 ml/min/1.73 sqM) Est GFR (CKD-EPI)NonAf 41 (>60 ml/min/1.73 sqM) Glucose 78 (74-99) mg/dL POC Glucose (mg/dL) 83 (75-99) mg/dL POC Glu Rail [place]ender ID [place] A Calcium 9.8 (8.4-10.2) mg/dL Total Bilirubin 0.4 (0.2-1.3) mg/dL AST 23 (14-36) U/L ALT 22 (9-52) U/L Alkaline Phosphatase 118 (38-126) U/L Troponin I (0.000-0.034) ng/mL Total Protein 7.1 (6.3-8.2) g/dL Albumin 4.1 (3.5-5.0) g/dL Urine Color Urine Appearance (Clear) Urine pH (5.0-8.0) Ur Specific [place] (1.001-1.035) Urine Protein (Negative) Urine Glucose (UA) (Negative) Urine Ketones (Negative) Urine Blood (Negative) Urine Nitrite (Negative) Urine Bilirubin (Negative) Urine Urobilinogen (<2.0) mg/dL Ur Leukocyte Esterase (Negative) 06/04/19 06/04/19 06/04/19 Range/Units 14:11 14:11 14:26 WBC (3.8-10.6) k/uL RBC (3.80-5.40) m/uL Hgb (11.4-16.0) gm/dL Hct (34.0-46.0) % MCV (80.0-100.0) fL MCH (25.0-35.0) pg MCHC (31.0-37.0) g/dL RDW (11.5-15.5) % Plt Count (150-450) k/uL Neutrophils % % Lymphocytes % % Monocytes % % Eosinophils % % Basophils % % Neutrophils # (1.3-7.7) k/uL Lymphocytes # (1.0-4.8) k/uL Monocytes # (0-1.0) k/uL Eosinophils # (0-0.7) k/uL Basophils # (0-0.2) k/uL Anisocytosis PT 9.5 (9.0-12.0) sec INR 0.9 (<1.2) APTT 26.6 (22.0-30.0) sec Sodium (137-145) mmol/L Potassium (3.5-5.1) mmol/L Chloride (98-107) mmol/L Carbon Dioxide (22-30) mmol/L Anion Gap mmol/L BUN (7-17) mg/dL Creatinine (0.52-1.04) mg/dL Est GFR (CKD-EPI)AfAm (>60 ml/min/1.73 sqM) Est GFR (CKD-EPI)NonAf (>60 ml/min/1.73 sqM) Glucose (74-99) mg/dL POC Glucose (mg/dL) (75-99) mg/dL POC Glu Rail Bender ID Calcium (8.4-10.2) mg/dL Total Bilirubin (0.2-1.3) mg/dL AST (14-36) U/L ALT (9-52) U/L Alkaline Phosphatase (38-126) U/L Troponin I <0.012 (0.000-0.034) ng/mL Total Protein (6.3-8.2) g/dL Albumin (3.5-5.0) g/dL Urine Color Light Yellow Urine Appearance Clear (Clear) Urine pH 5.0 (5.0-8.0) Ur Specific [place] 1.006 (1.001-1.035) Urine Protein Negative (Negative) Urine Glucose (UA) Negative (Negative) Urine Ketones Negative (Negative) Urine Blood Negative (Negative) Urine Nitrite Negative (Negative) Urine Bilirubin Negative (Negative) Urine Urobilinogen <2.0 (<2.0) mg/dL Ur Leukocyte Esterase Negative (Negative) - Radiology Data Radiology results: image reviewed (Computed tomography scan the brain reveals no acute process) Disposition Clinical Impression: Transient cerebral ischemia Disposition: OTHER INSTITUTION NOT DEFINED Is patient prescribed a controlled substance at d/c from ED?: No Referrals: Jose Miller DO [Primary Care Provider] - 1-2 days Time of Disposition: 15:59 - Out of Hospital Transfer - Req. Specs Out of Hospital Transfer - Requested Specifics: Other Emergency Center
[2019-04-14 14:11] VITALS: RESP 18
[2019-04-14 14:32] LABS: Anisocytosis Slight; Basophils % (A) 0 %; Eosinophils % (A) 1 %; HCT 32.2 % (34.0-46.0); HGB 10.3 gm/dL (11.4-16.0); Lymphocytes % (A) 20 %; MCH 30.6 pg (25.0-35.0); MCHC 32.1 g/dL (31.0-37.0); MCV 95.2 fL (80.0-100.0); Mean Platelet Volume 7.7; Monocytes # (A) 0.3 k/uL (0-1.0); Monocytes % (A) 7 %; Neutrophils # (A) 3.5 k/uL (1.3-7.7); Neutrophils % (A) 70 %; Platelet Count 260 k/uL (150-450); RBC 3.39 m/uL (3.80-5.40); RDW 16.9 % (11.5-15.5)
[2019-04-14 14:40] LABS: INR 0.9 (<1.2); Partial Thromboplastin Time 26.6 sec (22.0-30.0); Prothrombin Time 9.5 sec (9.0-12.0)
[2019-04-14 14:47] LABS: Albumin 4.1 g/dL (3.5-5.0); Calcium 9.8 mg/dL (8.4-10.2); Potassium 4.8 mmol/L (3.5-5.1); Total Bilirubin 0.4 mg/dL (0.2-1.3); Total Protein 7.1 g/dL (6.3-8.2)
[2019-04-14 14:55] LABS: Appearance,Urine Clear (Clear); Bilirubin,Urine Negative (Negative); Blood,Urine Negative (Negative); Color,Urine Light Yellow; Glucose,Urine (UA) Negative (Negative); Ketones,Urine Negative (Negative); Leukocyte Esterase,Urine Negative (Negative); Nitrite,Urine Negative (Negative); Protein,Urine Negative (Negative); Specific Gravity,Urine 1.006 (1.001-1.035); Urobilinogen,Urine <2.0 mg/dL (<2.0)
--- NOTE | 2019-04-14 16:17 | XR ---
EXAMINATION TYPE: XR chest 2V DATE OF EXAM: 04/14/2019 COMPARISON: NONE HISTORY: Altered mental status and facial droop TECHNIQUE: Frontal and lateral views of the chest are obtained. FINDINGS: There is an enlarged cardiac mediastinal silhouette and mild pulmonary vascular congestion . There is no focal air space opacity, pleural effusion, or pneumothorax seen. Diffuse osseous demine ralization is seen. Cholecystectomy clips are seen. Extensive degenerative changes of the left glenoh umeral joint are present. IMPRESSION: Mild pulmonary vascular congestion and an enlarged cardiac mediastinal silhouette. Consi mark congestive heart failure.
[2019-04-14 17:20] VITALS: BP 168/90; PULSE 71
== END 2019-04-14 17:20 | disposition other institution (70) ==
LOC: EC 13:39
DX: G45.9 Transient cerebral ischemic attack, unspecified (principal); I11.0 Hypertensive heart disease with heart failure; I50.9 Heart failure, unspecified; E07.9 Disorder of thyroid, unspecified; Z79.890 Hormone replacement therapy; Z79.899 Other long term (current) drug therapy; Z79.82 Long term (current) use of aspirin; Z88.1 Allergy status to other antibiotic agents; Z88.2 Allergy status to sulfonamides; Z88.8 Allergy status to other drugs, medicaments and biological substances
CPT/HCPCS: 36415; 70450; 71046; 80053; 81003; 84484; 85025; 85610; 85730; 93005; 99285